=== PATIENT | female | born 1955 | race Caucasian/White ===

== ENCOUNTER → 2017-05-16 | Outpatient (CLI) | payer MEDICARE, OTHER ==
[~2017-05-16] MED LIST: ASP81TEC PO; ATR20T PO; CLD600T PO; DALF10TA PO; FLC1T PO; FOLIC ACID PO; GBPN300C PO; IBAN150T5 PO; IBP600T1 PO; LEVO125T PO; LOSA1TAB3 PO; MTX2.5T PO; MULT-963 PO; PNT40TEC PO; SCR1T1 PO; SPRN25T PO; TIZA4CAP PO; TOLTA4 PO; VIT400TA2 PO; VITA1CAP59 PO
--- NOTE | 2017-05-16 13:17 | Diagnostic Imaging Report ---
PROCEDURE: MRI lumbar spine. TECHNIQUE: Multiplanar, multisequence MRI of the lumbar spine was performed without contrast. INDICATION: Back pain. FINDINGS: There is straightening of the spine curvature at the lumbar levels and in the lower thoracic spine visualized on this exam. There is minimal anterolisthesis of L4 over L5 with otherwise no significant alignment abnormality at the posterior spinal line. The vertebral body heights are preserved. There is disc desiccation at multiple levels with moderate disc height loss at L5/S1. There is marrow edema around endplates of L4/L5 and L5/S1 and minimal marrow edema around endplates of L3/L4 level as well. There is no significant marrow signal abnormality. The cauda equina and conus medullaris appear grossly unremarkable. There is laminectomy change seen involving L2 and L3 levels. T12/L1: There is no significant disc herniation. No facet hypertrophy. No spinal canal or lateral recess stenosis. Incidental note of a 5 mm perineural cyst in the left foramen is seen. L1/L2: There is no significant disc herniation. There is mild facet hypertrophy. No central canal, lateral recess or foraminal stenosis. L2/L3: There is a diffuse disc bulge. Laminectomy seen at this level. There is also removal of the ligamentum flavum at this level bilaterally. No central canal or lateral recess stenosis. There is mild foraminal narrowing on the left side and no significant foraminal narrowing on the right. L3/L4: There is no disc herniation. There is moderate facet hypertrophy on the right and mild facet hypertrophy on the left. No central canal stenosis. There is mild to moderate right lateral recess stenosis and no significant left recess stenosis. The foramina demonstrate no significant stenosis on the left and moderate stenosis on the right side. L4/L5: There is minimal spondylolisthesis. There is bilateral moderate facet hypertrophy. No central canal stenosis. There is mild left lateral recess stenosis and no lateral recess stenosis on the right. The foramina demonstrate moderate stenosis bilaterally, worse on the right side. L5/S1: There is a diffuse disc bulge and mild facet hypertrophy. No central canal stenosis. There is mild lateral recess stenosis only on the left side. The right lateral recess is patent. The foramina, however, demonstrate bilateral stenosis, moderate to severe on the right side mostly involving the medial aspect of the foramen and moderate stenosis on the left side. The far lateral aspect of the disc is also abutting the exiting L5 spinal nerve bilaterally. IMPRESSION: Prominent foraminal stenosis involving L3/L4, L4/L5 and L5/S1 levels as described. Dictated by: Dictated on workstation # [id number]
== END ==
LOC: RAD 09:33
PROVIDERS: ATTEND Physician Assistant
DX: M54.5 Low back pain (principal)
CPT/HCPCS: 72148

== ENCOUNTER 2021-04-12 16:35 | Outpatient (RCR) | payer MEDICARE, OTHER | END 2021-04-12 17:00 | disposition home or self-care (01) | PROVIDERS: ATTEND Physician Assistant | DX: M48.02 Spinal stenosis, cervical region (principal); M54.12 Radiculopathy, cervical region; I10 Essential (primary) hypertension; Z98.1 Arthrodesis status ==

== ENCOUNTER → 2022-03-29 | Outpatient (CLI) | payer MEDICARE, OTHER ==
[~2022-03-29] VITALS: Ht 157.5 cm; Wt 74.5 kg
[~2022-03-29] MED LIST changes: +LIDOCAINE 1% INJ 10 ML VIAL INJ ONE
--- NOTE | 2022-03-29 14:41 | Diagnostic Imaging Report ---
INDICATION: Left breast mass. The patient presents for ultrasound guided core biopsy. The patient was brought to the sonographic suite and placed on the table in the supine position. Ultrasound imaging of the left breast was performed to evaluate appropriate entry site. Left breast was then prepped and draped in the usual sterile fashion. A small amount of 1% lidocaine was utilized for local anesthesia. A total of 4 core biopsies were obtained of the solid mass at the 12:00 location of the left breast utilizing the 14-gauge Achieve needle. A marker clip was then deployed. Hemostasis was obtained using manual compression. Patient tolerated the procedure well and was sent for post procedure mammogram in satisfactory condition. IMPRESSION: Successful ultrasound-guided core biopsy of the lobulated solid mass 12:00 location left breast. Pathology results are currently pending. Dictated by: Dictated on workstation # [id number]
--- NOTE | 2022-03-29 16:03 | Diagnostic Imaging Report ---
Indication: Left breast mass. Patient status post ultrasound-guided left breast biopsy. Unilateral left 2-D CC and ML mammography was performed after patient underwent ultrasound-guided left breast biopsy. Images demonstrate marker clip within the posterior aspect of the lobulated mass in the upper left breast. Impression: Clip placement, status post ultrasound-guided left breast biopsy. Dictated by: Dictated on workstation # [id number]
== END ==
LOC: RAD 13:21
PROVIDERS: ATTEND Surgery
DX: N63.25 Unspecified lump in the left breast, overlapping quadrants (principal)
CPT/HCPCS: 19083; 77065; 88305; 88341; 88342; 88360; G0279

== ENCOUNTER 2022-04-09 08:52 | Outpatient (RCR) | payer MEDICARE, OTHER ==
[~2022-04-09 08:52] MED LIST changes: -LIDOCAINE 1% INJ 10 ML VIAL INJ ONE
== END 2022-04-12 17:15 | disposition home or self-care (01) ==
PROVIDERS: ATTEND Nurse Practitioner Adult Health
DX: G35 Multiple sclerosis (principal); I10 Essential (primary) hypertension; E03.9 Hypothyroidism, unspecified

== ENCOUNTER → 2022-04-17 | Outpatient (CLI) | payer MEDICARE, OTHER ==
[~2022-04-17] MED LIST changes: +ACET325C7 PO; +ACHD5005 PO; +BACL10TA PO; +LEVO137T2 PO; +LOSA1TAB26 PO; +POTA20PA28 PO; +SIPO2TAB PO
== END ==
LOC: CARD 12:19
PROVIDERS: ATTEND Internal Medicine Hematology & Oncology
DX: Z01.818 Encounter for other preprocedural examination (principal); C50.412 Malignant neoplasm of upper-outer quadrant of left female breast; I35.0 Nonrheumatic aortic (valve) stenosis
CPT/HCPCS: 93306

== ENCOUNTER 2022-04-18 10:33 | Outpatient (CLI) | payer MEDICARE, OTHER ==
[~2022-04-18] VITALS: Ht 154.9 cm; Wt 73.8 kg
[~2022-04-18 10:33] MED LIST changes: -ACET325C7 PO; -ACHD5005 PO; -BACL10TA PO; -LEVO137T2 PO; -LOSA1TAB26 PO; -POTA20PA28 PO; -SIPO2TAB PO
[2022-04-18] MEDS ORDERED: POTA20PA28 PO (13:15)
[2022-04-18] MEDS ORDERED: BACL10TA PO (13:15)
[2022-04-18] MEDS ORDERED: SIPO2TAB PO (13:15)
[2022-04-18] MEDS ORDERED: LEVO137T2 PO (13:15)
[2022-04-18] MEDS ORDERED: LOSA1TAB26 PO (13:15)
[2022-04-18] MEDS ORDERED: ACET325C7 PO (13:15)
[2022-04-19] MEDS ORDERED: ACHD5005 PO (10:04)
== END 2022-04-18 13:17 | disposition home or self-care (01) ==
LOC: PREOP 10:33
PROVIDERS: ATTEND Surgery
DX: Z01.818 Encounter for other preprocedural examination (principal)

== ENCOUNTER 2022-04-19 09:50 | Day surgery (SDC) | payer MEDICARE, OTHER ==
[2022-04-19] VITALS (7 sets, daily range): BP systolic 122–168; BP diastolic 70–94
[~2022-04-19] VITALS: Ht 36.3 cm; Wt 73.8 kg
[~2022-04-19 09:50] MED LIST changes: +ACET325C7 PO; +BACL10TA PO; +LEVO137T2 PO; +LOSA1TAB26 PO; +POTA20PA28 PO; +SIPO2TAB PO
[2022-04-19] MEDS ORDERED: 0.9% SODIUM CHLORIDE PF INJ 20 ML VIAL ONE (09:53)
[2022-04-19] MEDS ORDERED: LIDOCAINE/EPI 2% 1:200,00 (XYLOCAINE) 10 ML VIAL ONE (09:54)
[2022-04-19] MEDS ORDERED: HEParin (CENTRAL IV FLUSH) 500 UNIT/5 ML SYR ONE (09:54)
[2022-04-19] MEDS ORDERED: ACHD5005 PO (10:04)
--- NOTE | 2022-04-19 10:05 | Discharge Inst-Surgical ---
D/C Lap Instructions-KIDO Reconcile Patient Problems Problems Reviewed?: Yes New, Converted, or Re-Newed RX: RX on Chart Follow Up Appt in 2 weeks Activity as tolerated No driving for 24 hours No driving while on pain medications Incentive Spirometry use every 2 hours while awake Regular Diet Symptoms to Report: Fever over 101 degree F, Nausea/Vomiting Infection Signs and Symptoms to report: Increased redness, Foul odor of wound, Increased drainage Bathing instructions: May shower Operative Area Clean/Dry; Keep incision clean/dry If any problems/questions: Contact your physician or go to Emergency Room JAQUELINE MONROE APRN Apr 19, 2022 10:04
--- NOTE | 2022-04-19 10:05 | Progress Note-Pre Operative ---
Pre-Operative Progress Note Date H&P Reviewed: Apr 19, 2022 Time H&P Reviewed: 10:00 History & Physical: H&P Reviewed, Patient Examed, No changes noted Pre-Operative Diagnosis: Left breast cancer JAQUELINE MONROE APRN Apr 19, 2022 10:05
[2022-04-19] MEDS ORDERED: ONDANSETRON 4 MG/2 ML (SDV) Z0FRAN ONE (10:12)
[2022-04-19] MEDS ORDERED: ONDANSETRON 4 MG/2 ML (SDV) Z0FRAN IV ONE (10:15)
[2022-04-19] MEDS ORDERED: morphine INJ 10 MG/ML 1ML (SYR OR VIAL) IVP PRN (10:15)
[2022-04-19] MEDS ORDERED: CLINDAMYCIN 600 MG/50 ML IVPB 50 ML IV ONE (10:15)
[2022-04-19] MEDS ORDERED: ONDANSETRON 4 MG/2 ML (SDV) Z0FRAN IVP PRN ×2 (10:15→11:30)
[2022-04-19] MEDS ORDERED: ACETAMINOPHEN 325 MG TABLET PO PRN (10:15)
[2022-04-19] MEDS ORDERED: LACTATED RINGERS 1,000 ML IV PRN (10:15)
[2022-04-19] MEDS ORDERED: HYDROcodone/APAP 5 MG/325 MG (LORTAB) TAB PO ONE (10:15)
[2022-04-19] MEDS ORDERED: PROPOFOL INJECTION 50 ML IV ONE (10:17)
--- NOTE | 2022-04-19 11:10 | Progress Note-Post Operative ---
Post-Operative Progess Note Surgeon (s)/Home Performance Laborer (s) Surgeon JACEK TAPIA MD Home Performance Laborer: brandy santamaria SOFTWARE TEST ANALYST Pre-Operative Diagnosis Left breast cancer Post-Operative Diagnosis same Procedure & Operative Findings Date of Procedure 04/19/22 Procedure Performed/Findings placement left subclavian groshong implantable catheter. Anesthesia Type mac Estimated Blood Loss Estimated blood loss (mL): minimal Specimens/Packing Specimens Removed none JACEK TAPIA MD Apr 19, 2022 11:10
[2022-04-19] MEDS ORDERED: 0.9% SODIUM CHLORIDE PF INJ 20 ML VIAL IJ ONE (11:19)
[2022-04-19] MEDS ORDERED: HEParin (CENTRAL IV FLUSH) 500 UNIT/5 ML SYR IV ONE (11:20)
[2022-04-19] MEDS ORDERED: LIDOCAINE/EPI 2% 1:200,00 (XYLOCAINE) 10 ML VIAL INJ ONE (11:21)
[2022-04-19] MEDS ORDERED: morphine INJ 10 MG/ML 1ML (SYR OR VIAL) IVP ONE (11:30)
--- NOTE | 2022-04-19 11:49 | Diagnostic Imaging Report ---
EXAMINATION: Chest 1 view HISTORY: IMMEDIATE POST OP LEFT PORT PLACEMENT COMPARISON: None available. FINDINGS: Heart size and pulmonary vasculature are normal. The lungs are clear without consolidation, pleural effusion, or pneumothorax. The osseous structures are intact. A left-sided port catheter is present with the tip projecting over the atriocaval junction. IMPRESSION: 1. Left-sided port catheter placement with the tip located over the atriocaval junction. No pneumothorax. Dictated by: Dictated on workstation # [id number]
--- NOTE | 2022-04-19 13:50 | Diagnostic Imaging Report ---
INDICATION: Port-A-Cath placement Intraoperative views are obtained with the portable intensifier in surgery. Two views are obtained, 9.4 seconds of fluoroscopy time was used Intraoperative views demonstrate left subclavian central venous catheter with tip overlying the low SVC. IMPRESSION: Intraoperative fluoroscopy views demonstrate central venous catheter placement as above. Dictated by: Dictated on workstation # [id number]
--- NOTE | 2022-04-19 15:21 | OPERATIVE REPORT ---
DATE OF SERVICE: 04/19/2022 ATTENDING GUARD MUSEUM: Arminda Alvarado APRN. INDICATIONS: The patient is a 67-year-old female known to us. Approximately a month ago, she was found to have a left breast lesion at the 12 o'clock position. The mammogram showed a 2.4 x 2.4 cm density with irregular borders. There was also some microcalcifications within this region. An ultrasound was then performed, which did show a solid 2.3 x 2.0 x 1.8 cm lesion with recommendation for biopsy, which was done, and this came back as an invasive ductal carcinoma, which was ER/AK negative as well as HER-2/brianda negative and was referred to oncology for further evaluation. The recommendation was to proceed with neoadjuvant chemotherapy before surgical resection. She states that she began having yearly mammograms at around age 38. She does not report any nipple discharge or skin dimpling as well as no breast asymmetries. She began menses at around age 8 and underwent a complete hysterectomy at age 48. She did use oral contraceptive pills for approximately 2 to 3 years. She does not report any family history of breast cancer. DESCRIPTION OF PROCEDURE: The patient was brought to the operating room, laid supine on the table. After adequate IV pain and sedative medications and monitored anesthesia care, the chest and neck was prepped and draped in standard surgical fashion. A 1% lidocaine with epinephrine was then used to anesthetize the overlying skin in the left subclavian region. The left subclavian vein was then cannulated with drawing of venous blood. The guidewire was then inserted, was then placed under fluoroscopy without any resistance. The cannulating needle removed, and a skin incision was then made using a 15 blade. The dilator and trocar were then placed over the guidewire and the dilator and guidewire were then removed and the Groshong catheter placed until the catheter tip was at the superior vena cava - right atrial junction. The sheath was then removed. The inner wire within the catheter was then removed. The catheter cut down to size and a port placed onto the catheter. The chest reservoir was then created by extending the skin incision laterally using a 15-blade. A plane between the subcutaneous fat and the anterior pectoralis fascia was created using a blunt dissection as well as electrocautery. Good hemostasis was observed. The port was then placed into the reservoir and sutured to the anterior pectoralis fascia using interrupted 3-0 Vicryl sutures. Subcutaneous tissue was then reapproximated using 3-0 Vicryl interrupted sutures. Skin was closed using 4-0 Monocryl running subcuticular suture. Wound was then cleaned and covered with Dermabond. The port was accessed with a non-coring Berg needle with venous blood drawn and heparinized saline pushed in without any resistance. The patient tolerated the procedure well. We will get a post-procedure chest x-ray and once confirmation of placement, the port may be accessed and used at any time. Job ID: [id number] DocumentID: [id number] Dictated Date: 04/19/2022 11:29:28 Electrician Aircraft Date: 04/19/2022 15:20:24 Dictated By: JACEK TAPIA MD
--- NOTE | 2022-04-24 14:31 | Anesthesia-General Post-Op ---
MAC Significant Intra-Op Events Notes late entry: Post Op Complications Complications None Follow Up Care/Instructions Patient Instructions None needed. Anesthesiology Discharge Order Discharge Order Patient is doing well, no complaints, stable vital signs, no apparent adverse anesthesia problems. No complications reported per nursing. JOSHUA SALDANA CRNA Apr 24, 2022 14:31
== END 2022-04-19 12:35 | disposition home or self-care (01) ==
LOC: SDC 09:50
PROVIDERS: ATTEND Surgery
DX: C50.812 Malignant neoplasm of overlapping sites of left female breast (principal); Z17.1 Estrogen receptor negative status [ER-]; F17.210 Nicotine dependence, cigarettes, uncomplicated
CPT/HCPCS: 36561; 71045; 76000; 86701; 87081; C1788; 36415

== ENCOUNTER → 2022-06-22 | Outpatient (CLI) | payer MEDICARE, OTHER ==
[~2022-06-22] MED LIST changes: +ACHD5005 PO
== END ==
LOC: CARD 10:30
PROVIDERS: ATTEND Nurse Practitioner Adult Health
DX: Z51.11 Encounter for antineoplastic chemotherapy (principal); I51.7 Cardiomegaly; I35.8 Other nonrheumatic aortic valve disorders; I34.0 Nonrheumatic mitral (valve) insufficiency; C50.412 Malignant neoplasm of upper-outer quadrant of left female breast; Z03.89 Encounter for observation for other suspected diseases and conditions ruled out
CPT/HCPCS: 93306

== ENCOUNTER → 2022-10-26 | Outpatient (CLI) | payer MEDICARE, OTHER ==
[~2022-10-26] VITALS: Ht 154 cm; Wt 77.0 kg
[~2022-10-26] MED LIST changes: +CATHETER FLUSH 10 ML SYR IVP PRN; +REGADENOSON 0.4 MG/5 ML SYR (LEXISCAN) IV ONE
[2022-10-26 08:19] VITALS: BP 147/93
--- NOTE | 2022-10-29 22:49 | STRESS TEST ---
DATE OF SERVICE: 10/26/2022 RESTING AND POST REGADENOSON TECHNETIUM-99M TETROFOSMIN SPECT CT IMAGING ORDERING PHYSICIAN: Dr. Day. PRIMARY PHYSICIAN: Michelle Alvarado APRN. CLINICAL DIAGNOSIS: Shortness of breath. Baseline images were carried out after injection of 10.97 mCi of technetium-99m tetrofosmin. This was followed by 0.4 mg regadenoson and 30.3 mCi technetium-99m tetrofosmin for stress imaging. The electrocardiogram showed sinus rhythm at baseline. It did not change significantly with the regadenoson infusion. The patient noted some shortness of breath following regadenoson infusion, which resolved in a few minutes. Review of images at rest and following stress does not indicate any significant perfusion defects consistent with myocardial ischemia or infarction. Gated images show normal global left ventricular systolic function with normal regional wall motion. Left ventricular ejection fraction is calculated to be 58%. CONCLUSIONS: 1. No evidence of any significant myocardial ischemia or infarction on this study. 2. Normal regional wall motion. 3. Normal global left ventricular systolic function with a calculated ejection fraction of 58%. Job ID: [id number] DocumentID: [id number] Dictated Date: 10/29/2022 17:19:06 Photoengraving Proofer Apprentice Date: 10/29/2022 22:47:00 Dictated By: LANRE DAY MD; JAIMEE; FACP; FACC;
== END ==
LOC: CARD 07:03
PROVIDERS: ATTEND Internal Medicine Cardiovascular Disease
DX: R06.09 Other forms of dyspnea (principal)
CPT/HCPCS: 78452; 93017; A9502

== ENCOUNTER → 2022-12-12 | Outpatient (RCR) | payer MEDICARE, OTHER ==
[~2022-12-12] MED LIST changes: -CATHETER FLUSH 10 ML SYR IVP PRN; -REGADENOSON 0.4 MG/5 ML SYR (LEXISCAN) IV ONE
== END ==
LOC: ONC 12-05 08:43
PROVIDERS: ATTEND Radiology Radiation Oncology
DX: Z51.0 Encounter for antineoplastic radiation therapy (principal); C50.412 Malignant neoplasm of upper-outer quadrant of left female breast; E78.00 Pure hypercholesterolemia, unspecified; I10 Essential (primary) hypertension; K21.9 Gastro-esophageal reflux disease without esophagitis
CPT/HCPCS: 77290; 77295; 77300; 77334 ×2; G0463; 77280; 77417; 77470; 99205

== ENCOUNTER 2023-01-07 12:53 | Outpatient (RCR) | payer MEDICARE, OTHER | END 2023-01-11 | disposition home or self-care (01) | LOC: ONC 12:53 | PROVIDERS: ATTEND Radiology Radiation Oncology | DX: Z51.0 Encounter for antineoplastic radiation therapy (principal); C50.412 Malignant neoplasm of upper-outer quadrant of left female breast | CPT/HCPCS: 77280; 77307; 77334; 77336; 77417 ==

== ENCOUNTER 2023-02-28 09:01 | Outpatient (RCR) | payer MEDICARE, OTHER | END 2023-03-14 | disposition home or self-care (01) | LOC: ONC 09:01 | PROVIDERS: ATTEND Radiology Radiation Oncology | DX: C50.412 Malignant neoplasm of upper-outer quadrant of left female breast (principal); I11.9 Hypertensive heart disease without heart failure; I43 Cardiomyopathy in diseases classified elsewhere; I34.0 Nonrheumatic mitral (valve) insufficiency; E78.2 Mixed hyperlipidemia | CPT/HCPCS: 99213 ==